=== PATIENT | female | born 1950 | race Caucasian/White ===

== ENCOUNTER → 2020-09-23 | Outpatient (CLI) | payer MEDICARE ==
[2020-09-23 15:21] VITALS: BP 146/84
--- NOTE | 2020-09-23 15:21 | Cardiology Stress Test Report ---
Stress Test Report Date of Procedure/Referring: Date of Procedure: Sep 23, 2020 PCP Jose Rafael Ortiz Aprn Admitting Physician Indications: Chest pain Baseline Heart Rate: 104 Baseline Blood Pressure: Blood Pressure Systolic: 146 Blood Pressure Diastolic: 84 Baseline EKG: Baseline EKG: normal sinus rhythm Summary/Conclusion: Summary: In summary, the patient started exercising with a baseline heart rate, blood pressure and EKG mentioned above Patient was able to exercise for a total of 3minutes on Farhat protocol, METs 4.6 Maximum heart rate 140 Maximum blood pressure 175/84 Stress EKG, Minimal nondiagnostic changes Recovery EKG , Return to baseline Conclusion: 1. Fair exercise tolerance for a total of 3 minutes on Farhat protocol, 4.6 METs, achieving 94 percent of maximum expected heart rate 2. Minimal nondiagnostic EKG changes with exercise returned to baseline during recovery 3. No arrhythmia was noted BRANDI DUMONT MD Sep 23, 2020 15:21
== END ==
LOC: CARD 09:50
PROVIDERS: ATTEND Nurse Practitioner Family
DX: R07.9 Chest pain, unspecified (principal)
CPT/HCPCS: 93017

== ENCOUNTER → 2020-10-21 | Outpatient (CLI) | payer MEDICARE | LOC: CARD 12:30 | PROVIDERS: ATTEND Internal Medicine Cardiovascular Disease | DX: R07.9 Chest pain, unspecified (principal); I10 Essential (primary) hypertension | CPT/HCPCS: 93306 ==

== ENCOUNTER → 2020-10-26 | Outpatient (CLI) | payer MEDICARE ==
[~2020-10-26] VITALS: Ht 157 cm; Wt 68.0 kg
[~2020-10-26] MED LIST: REGADENOSON 0.4 MG/5 ML SYR (LEXISCAN) IV ONE
[2020-10-26] MEDS: CATHETER FLUSH 10 ML SYR IV PRN ×2 (08:19→09:23)
[2020-10-26 09:19] VITALS: BP 150/85
--- NOTE | 2020-10-26 12:08 | Cardiology Stress Test Report ---
Stress Test Report Date of Procedure/Referring: Date of Procedure: Oct 26, 2020 PCP Brandi Hampton MD Admitting Physician No,Local Physician Indications: Chest pain Baseline Heart Rate: 79 Baseline Blood Pressure: Blood Pressure Systolic: 150 Blood Pressure Diastolic: 85 Baseline Vitals Vital Signs Date Time Temp Pulse Resp B/P (MAP) Pulse Ox O2 Delivery O2 Flow Rate FiO2 10/26/20 09:19 99 14 150/85 (106) 98 Room Air Baseline EKG: Baseline EKG: normal sinus rhythm Summary After explaining the procedure to the patient, she signed a consent and then brought to the stress nuclear laboratory. Patient received 0.4 mg Lexiscan for stress test, ECG, heart rate and blood pressure were monitored continuously. Resting and stress dose of radio tracer were injected, imaging was acquired and reviewed in short axis, horizontal long axis and vertical long axis views. TID: 1.03 SSS: 3 SDS: 2 EF: 77 1. Patient tolerated Lexiscan well 2. No significant ischemia or infarction on SPECT images 3. Normal left ventricular size, EF 77 percent BRANDI HAMPTON MD Oct 26, 2020 12:08
== END ==
LOC: CARD 08:30
PROVIDERS: ATTEND Internal Medicine Cardiovascular Disease
DX: R07.9 Chest pain, unspecified (principal); I10 Essential (primary) hypertension
CPT/HCPCS: 78452; 93017; A9502

== ENCOUNTER 2022-12-28 08:25 | Outpatient (CLI) | payer MEDICARE ==
[~2022-12-28] VITALS: Ht 157.5 cm; Wt 60.3 kg
[2022-12-29] MEDS ORDERED: LISI40TA9 PO (11:39)
[2022-12-29] MEDS ORDERED: SIMV40TA25 PO (11:39)
[2022-12-29] MEDS ORDERED: MV-M1TAB57 PO (11:39)
[2022-12-29] MEDS ORDERED: ASPI-999 PO (11:39)
[2022-12-29] MEDS ORDERED: MTP25TSR PO (11:39)
== END 2022-12-29 11:42 | disposition home or self-care (01) ==
LOC: PREOP 08:25
PROVIDERS: ATTEND Surgery
DX: Z01.818 Encounter for other preprocedural examination (principal)

== ENCOUNTER 2023-01-09 11:12 | Day surgery (SDC) | payer MEDICARE ==
[~2023-01-09] VITALS: Ht 157.5 cm; Wt 60.3 kg
[~2023-01-09 11:12] MED LIST changes: +ASPI-999 PO; +LISI40TA9 PO; +MTP25TSR PO; +MV-M1TAB57 PO; -REGADENOSON 0.4 MG/5 ML SYR (LEXISCAN) IV ONE; +SIMV40TA25 PO
[2023-01-09] MEDS ORDERED: LACTATED RINGERS 1,000 ML IV STA (11:15)
[2023-01-09] MEDS ORDERED: PROPOFOL INJECTION 50 ML IV ONE (11:35)
--- NOTE | 2023-01-09 11:38 | Progress Note-Pre Operative ---
Pre-Operative Progress Note Date of Available H&P: December 27, 2022 Date H&P Reviewed: January 09, 2023 Time H&P Reviewed: 11:36 History & Physical: H&P Reviewed, Patient Examed, No changes noted Pre-Operative Diagnosis: Hx of polyps MALIK KINNEY DO January 09, 2023 11:38
[2023-01-09 11:42] VITALS: BP 133/80
--- NOTE | 2023-01-09 12:13 | Progress Note-Post Operative ---
Post-Operative Progess Note Surgeon (s)/Senior Mainframe Developer (s) Surgeon MALIK KINNEY DO Senior Mainframe Developer: none Pre-Operative Diagnosis Hx of polyps Post-Operative Diagnosis Rectal polyp int hemorrhoids Procedure & Operative Findings Date of Procedure 01/09/23 Procedure Performed/Findings Colonoscopy with snare polypectomy PROCEDURE NOTE: After informed consent was obtained, the patient was brought to the endoscopy suite, placed in bed in left lateral decubitus position. She was administered IV sedation by the PATIENT ACCESS MANAGER who then monitored her vitals the entire time, heart rate, blood pressure and pulse ox and the scope was inserted, pushed all the way to about 140 cm and pushed into the cecum, took a picture of appendiceal orifice and noted the ileocecal valve. Then slowly withdrew the scope insufflating to look circumferentially at the hael starting in the cecum, up the ascending colon to the hepatic flexure, then down the transverse colon, splenic flexure, into the descending colon down in the sigmoid and then into the rectal vault and retroflexed the scope. Took a picture of the internal hemorrhoids. I found a larger polyp in the rectum; I removed it with snare. The patient tolerated the procedure. She was recovered in endoscopy suite. Recommended for repeat colonoscopy in 5 years. Anesthesia Type IV sedation by PATIENT ACCESS MANAGER Estimated Blood Loss Estimated blood loss (mL): scant Specimens/Packing Specimens Removed rectal polyp MALIK KINNEY DO January 09, 2023 12:13
--- NOTE | 2023-01-09 12:14 | Endoscopy Discharge Instruct ---
Endo Procedure/Findings Findings 1.: Polyp 2.: Internal Hemorrhoids Discharge Instructions - Activity: You might feel a little sleepy until tomorrow. This is due to the medicine you received to relax you. Until tomorrow, you should: NOT drive a car, operate machinery or power tools. NOT drink any alcoholic beverages. NOT make any important decisions or sign importortant papers. Do not return to work until tomorrow, unless otherwise instructed. Resume previous activities tomorrow. Diet: Start by taking liquids. If you tolerate liquids, advance to solid food. 1.: Colonscopy in 5 years Notify Physician - If you experience excessive bleeding, unusual abdominal pain, fever, or chest pain, contact your doctor immediately. Follow-Up: Other Follow up in my office in one week MALIK KINNEY DO January 09, 2023 12:14
[2023-01-09 12:15] VITALS: BP 108/59
[2023-01-09 12:20] VITALS: BP 113/58
--- NOTE | 2023-01-09 12:40 | Anesthesia-General Post-Op ---
MAC Patient Condition Mental Status/LOC: Same as Preop Cardiovascular: Satisfactory Nausea/Vomiting: Absent Respiratory: Satisfactory Pain: Controlled Complications: Absent Post Op Complications Complications None Follow Up Care/Instructions Patient Instructions None needed. Anesthesiology Discharge Order Discharge Order Patient is doing well, no complaints, stable vital signs, no apparent adverse anesthesia problems. No complications reported per nursing. GANGA MILLER CRNA January 09, 2023 12:40
[2023-01-09 13:05] VITALS: BP 113/58
== END 2023-01-09 13:05 | disposition home or self-care (01) ==
LOC: ENDO 11:12
PROVIDERS: ATTEND Surgery
DX: Z12.11 Encounter for screening for malignant neoplasm of colon (principal); D12.8 Benign neoplasm of rectum; K64.8 Other hemorrhoids